=== PATIENT | female | born 1955 | race American Indian/Alaskan Native ===

== ENCOUNTER 2020-10-05 09:27 | Outpatient (CLI) | payer OTHER ==
--- NOTE | 2020-10-05 10:15 | Mammography Report ---
DIGITAL DIAGNOSTIC MAMMOGRAM WITH CAD CONVENTIONAL, 10/05/2020 CLINICAL INFORMATION / INDICATION: Follow-up post right breast biopsy. MAMMOGRAPHIC MICROCALCIFICATIO N TECHNIQUE: Digital right mammographic imaging was performed. This examination was interpreted with the benefit of Computer-aided Detection analysis. COMPARISON: 04/25/20. FINDINGS: Breast Density: There are scattered areas of fibroglandular density. No dominant mass, suspicious calcifications or architectural distortion in the right breast. 2 right biopsy clips are again noted. Postbiopsy changes in the right breast superomedially have impr ashley. Microcalcifications in this region are stable. No new abnormality is seen. IMPRESSION: No mammographic evidence of malignancy. Resumption of routine bilateral yearly screening mammography is recommended in approximately 6 months. Follow up recommendation: Back to schedule. BI-RADS Category 2: Benign. A "normal" or negative report should not discourage follow up or biopsy of a clinically significant f inding. A written summary of these findings will be mailed to the patient. The patient will be entered into a mammography reporting system which will generate a reminder letter for the patient's next appointmen t at the appropriate interval. According to the [employer], yearly mammograms are recommended starting at age 40 and continuing as long as a woman is in good health. Breast MRI is recommended for women with an amber roximately 20-25% or greater lifetime risk of breast cancer, including women with a strong family his tory of breast or ovarian cancer and women who have been treated for Hodgkin's disease. Signer Name: Erickson Yee MD Signed: 10/05/2020 10:10 AM Workstation Name: [id number]
== END 2020-10-05 09:28 | disposition home or self-care (01) ==
LOC: SPVWC 09:27
PROVIDERS: ATTEND Surgery
DX: R92.8 Other abnormal and inconclusive findings on diagnostic imaging of breast (principal)